=== PATIENT | male | born 1970 | race Caucasian/White ===

== ENCOUNTER 2024-09-09 12:16 | Emergency (ER) | payer OTHER ==
[~2024-09-09] VITALS: Ht 188 cm; Wt 87.9 kg
[2024-09-09 12:21] VITALS: O2SAT 98
[2024-09-09 12:25] VITALS: BP 129/77; PULSE 69; RESP 16; TEMP 98.2; O2SAT 98
[2024-09-09] MEDS ORDERED: TOPUD MT (15:17)
[2024-09-09] MEDS ORDERED: IBUP-2029 MT (15:17)
== END 2024-09-09 17:10 | disposition home or self-care (01) ==
LOC: ER 13:35
DX: M65.4 Radial styloid tenosynovitis [de Quervain] (principal); Z98.890 Other specified postprocedural states; Z95.0 Presence of cardiac pacemaker; W11.XXXA Fall on and from ladder, initial encounter; Y93.89 Activity, other specified; Y92.89 Other specified places as the place of occurrence of the external cause; Y99.8 Other external cause status
CPT/HCPCS: 73100; 99283